=== PATIENT | male | born 1990 | race Caucasian/White ===

== ENCOUNTER 2017-05-21 23:23 | Inpatient (IN) | payer OTHER ==
[~2017-05-21] VITALS: Ht 190.5 cm; Wt 151.7 kg
[2017-05-22 07:36] VITALS: BP 138/78
[2017-05-22 15:52] VITALS: BP 142/79
[2017-05-23 07:55] VITALS: BP 127/87
[2017-05-23 16:14] VITALS: BP 145/90
[2017-05-24 08:13] VITALS: BP 138/78
[2017-05-25 07:49] VITALS: BP 131/80
[2017-05-25] MEDS ORDERED: FLUOXETINE HCL20 MG PO (10:15)
[2017-05-25] MEDS ORDERED: TRAZODONE HCL50 MG PO (10:32)
== END 2017-05-25 11:41 | disposition home or self-care (01) | DRG 885 ==
LOC: EME 23:23 → 1WEST 05-22 01:00 → EDOF 05-22 01:00 → ENRESERV 05-22 02:27 → 1WEST 05-22 02:28
DX: F33.9 Major depressive disorder, recurrent, unspecified (principal); R45.851 Suicidal ideations; Z91.5 Personal history of self-harm; Z87.891 Personal history of nicotine dependence
CPT/HCPCS: 90839; 97150 GO; 97165 GO; 99281; 99285